=== PATIENT | female | born 2000 | race Caucasian/White ===

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

== ENCOUNTER 2019-01-01 10:02 | Inpatient (IN) | payer MEDICAID ==
[~2019-01-01] VITALS: Ht 157.5 cm; Wt 93.4 kg
[~2019-01-01 10:02] MED LIST changes: -FERROUS SULFAT325 MG PO; -IBUPROFEN800 MG PO; -TYLENOL W/CODEI1 TAB PO
[2019-01-03] MEDS ORDERED: FERROUS SULFAT325 MG PO (06:04)
[2019-01-03 07:32] LABS: HEMATOCRIT 31.3 % (36.0-48.0); MCH 29.7 pg (26.0-34.0); MCHC 31.9 g/dL (31.0-37.0); MCV 92.9 fL (80.0-100.0); MEAN PLATELET VOLUME 11.6 fL (7.4-10.4); RBC 3.37 10x6/uL (4.00-5.40); RDW 13.5 % (11.5-14.5); WBC 12.6 10x3/uL (4.8-10.8)
[2019-01-03 08:08] VITALS: BP 115/65; Ht 157.5 cm; Wt 93.4 kg
--- NOTE | 2019-01-03 20:00 | NUR ---
FUNDAL CHECK COMPLETED, FUNDUS FIRM AT U/2, MIDLINE, LOCHIA RUBRA MODERATE AMOUNT NO CLOTS OBSERVED AT THIS TIME, PERICARE PROVIDED, ICE PACK IN PLACE TO PERINEUM, IN ARMS BONDING NOTED, QUESTIONS ANSWERED REGARDING BOTTLEFEEDING , PT DENIES FURTHER QUESTIONS OR CONCERNS AT THIS TIME, CONTINUE TO MONITOR.
[2019-01-03 22:14] VITALS: BP 124/78
--- NOTE | 2019-01-03 22:14 | NUR ---
AMBULATORY TO ROOM 1257 FOR CONTINUED PP CARE. STEADY GAIT NOTED. DENIES DIZZINESS AND LIGHTHEADEDNESS. VSS. PAIN 3/10 FOLLOWING RECEIVING SCHEDULED TYLENOL AND MOTRIN. REPORTS THAT BACK IS SORE AND "MUSCLES FEEL TIGHT." STATES THAT AMBULATING AND CHANGING BEDS HAS HELPED WITH BACK DISCOMFORT. DTR'S +2. 1+ BLE EDEMA. FUNDUS REMAINS FIRM, MIDLINE AND U2 WITH SMALL AMT RUBRA LOCHIA, NO CLOTS NOTED. ICE PACK OFF PER PT REQUEST. BREATH SOUNDS CLEAR AND EQUAL BILATERALLY, RESPIRATIONS REGULAR AND UNLABORED. 2+ BILATERAL LABIAL EDEMA NOTED, SUTURES TO LABIAL LACS AND SECOND DEGREE PERINEAL LAC WELL APPROXIMATED WITH NO S/S OF INFECTION NOTED. EDUCATION PROVIDED REGARDING NIPPLE CARE WITH . INSTRUCTED TO NOTIFY RN WHEN SHE VOIDS AT LEAST THE NEXT 2 TIMES AND TO VOID AT LEAST EVERY 2 HOURS TO PREVENT BLADDER FROM OVERFILLING. EDUCATED WHAT TO EXPECT WITH LOCHIA DURING PP PERIOD, VERBALIZES UNDERSTANDING AND DENIES QUESTIONS. LINENS PROVIDED TO SPOUSE. SPOUSE PRESENT DURING EDUCATION. IN NBN. BED IN LOW POSITION WITH UPPER SIDE RAILS RAISED X2. CALL LIGHT AND PHONE WITHIN REACH. WILL CONTINUE TO MONITOR AND ASSIST PRN.
--- NOTE | 2019-01-03 23:36 | NUR ---
ROUNDS MADE. PT RESTING ON RIGHT WITH EYES CLOSED. RESPIRATIONS REGULAR AND UNLABORED, NO S/S OF DISTRESS NOTED. BED IN LOW POSITION WITH UPPER SIDE RAILS RAISED X2. INFANT REMAINS IN NBN. SIGNIFICANT OTHER RESTING ON COUCH AT BEDSIDE. WILL CONTINUE TO MONITOR AND ASSIST PRN.
--- NOTE | 2019-01-04 00:24 | NUR ---
CONTINUES TO REST ON RIGHT SIDE WITH EYES CLOSED. PT WOKE AND ASSISTED TO BATHROOM. SMALL AMT RUBRA LOCHIA NOTED ON PERIPADS, NO CLOTS. PERICARE DONE PER PT WITH PERIBOTTLE, TUX, AND DERMAPLAST. ICE PACK PROVIDE AND PLACED BY PT. BACK TO BED. INFANT REMAINS IN NBN. SPOUSE RESTING ON COUCH. BED IN LOW POSITION WITH UPPER SIDE RAILS RAISED X2. CALL LIGHT AND PHONE WITHIN REACH. WILL CONTINUE TO MONITOR AND ASSIST PRN.
--- NOTE | 2019-01-04 02:01 | NUR ---
ROUNDS MADE. PT RESTING ON RIGHT SIDE WITH EYES CLOSED WITH HOB ELEVATED 15 DEGREES. RESPIRATIONS REGULAR AND UNLABORED, NO S/S OF DISTRESS NOTED. BED IN LOW POSITION WITH UPPER SIDE RAILS RAISED X2. CALL LIGHT AND PHONE WITHIN REACH. WILL CONTINUE TO MONITOR AND ASSIST PRN.
--- NOTE | 2019-01-04 03:20 | NUR ---
PAIN 6/10, ABD CRAMPING, PERINEAL STINGING, AND BACK "TIGHTNESS AND SORE IN MY MUSCLES." SCHEDULED TYLENOL GIVEN PER ORDER. PT DENIES NEED FOR ADDITIONAL INTERVENTION. CURRENTLY BONDING WITH INFANT. STATES THAT SHE HASN'T VOIDED SINCE RN ASSISTED TO BATHROOM. EDUCATED ON IMPORTANCE OF VOIDING AT LEAST Q2H. STANDBY ASSISTANCE PROVIDED TO BATHROOM. SMALL AMT RUBRA LOCHIA NOTED ON PERIPADS. ICE PACK REMOVED BY PT, REQUESTS NO ICE PACK BE REPLACED AT THIS TIME. VOIDED 700 MLS IN HAT, C/O STINGING TO BILATERAL LABIA WITH VOIDING, STATES THAT PERIBOTTLE HELPS TO RELIEVE BURNING. PERICARE DONE PER PT USING PERIBOTTLE, TUX, AND DERMAPLAST. BACK TO BED. ICE AND ICE WATER PROVIDED. DENIES ADDITIONAL NEEDS AT THIS TIME. ASSISTED FOB ON DIAPER CHANGE AND SWADDLING PER REQUEST. BED IN LOW POSITION WITH UPPER SIDE RAILS RAISED X2. CALL LIGHT AND PHONE WITHIN REACH. WILL CONTINUE TO MONITOR AND ASSIST PRN.
--- NOTE | 2019-01-04 04:01 | NUR ---
RESTING QUIETLY WITH EYES CLOSED IN SEMIFOWLERS POSITION. RESPIATIONS REGULAR AND UNLABORED, NO S/S OF DISTRESS NOTED. RESTING IN OPEN CRIB AT BEDSIDE. BED IN LOW POSITION WITH UPPER SIDE RAILS RAISED X2. CALL LIGHT AND PHONE WITHIN REACH. WILL CONTINUE TO MONITOR AND ASSIST PRN.
--- NOTE | 2019-01-04 05:16 | NUR ---
SCHEDULE MOTRIN GIVEN PER ORDER. 03/29 CONSTANT PERINEAL BURNING/STINGING, BACK ACHE AND "MUSCLE SORENESS" AND SOME LOWER ABD CRAMPING. DENIES NEED FOR ADDITIONAL INTERVENTION. ENCOURAGED TO VOID AT THIS TIME, STATES THAT SHE HASN'T VOIDED SINCE RN PREVIOUSLY ASSISTED TO BATHROOM. REINFORCED TEACHING ON IMPORTANCE OF KEEPING BLADDER EMPTIED REGULARLY, VERBALIZES UNDERSTANDING. UP TO VOID. PERICARE DONE PER PAD. CHUX CHANGED. SCANT RUBRA LOCHIA NOTED TO PERIPAD, NO CLOTS PRESENT. PT STATES THAT SHE IS VOIDING WITHOUT DIFFICULTY, JUST EXPERIENCES BURNING WITH URINATION AT BILATERAL LABIAL LAC SITES. ICE WATER PROVIDE. IN NBN AT THIS TIME. DENIES ADDITIONAL NEEDS. BED IN LOW POSITION WITH UPPER SIDE RAILS RAISED X2. CALL LIGHT AND PHONE WITHIN REACH. WILL CONTINUE TO MONITOR AND ASSIST PRN.
--- NOTE | 2019-01-04 06:01 | NUR ---
PAIN REASSESSMENT COMPLETED. PT LAYING ON RIGHT SIDE RESTING WITH EYES CLOSED. RESPIRATIONS REGULAR AND UNLABORED. NO S/S OF DISTRESS NOTED. BED IN LOW POSITION WITH UPPER SIDE RAILS RAISED X2. CALL LIGHT AND PHONE WITHIN REACH. WILL CONTINUE TO MONITOR AND ASSIST PRN.
[2019-01-04 07:30] VITALS: BP 98/62
--- NOTE | 2019-01-04 07:30 | NUR ---
PT ASLEEP WHEN ENTERED ROOM. EASILY AWAKENED. VERBAL RESPONSES APPRO TO QUESTIONS. STATES THAT BACK HURTS SOME AND PERINEAL AREA. SMALL LOCHIA NOTED ON PAD. PT STATES THAT SHE FEELS LIKE SHE CAN VOID- UP TO BATHROOM. VOIDED- REMA CARE DONE.
[2019-01-04 07:54] LABS: BASOPHILS 0 % (0-2); EOSINOPHILS 0.1 % (0-7); HEMATOCRIT 29.6 % (36.0-48.0); HEMOGLOBIN 9.3 g/dL (12-16); IMMATURE GRANULOCYTES 0.5 % (0-5); LYMPHOCYTES 12.7 % (15-50); MCH 29.1 pg (26.0-34.0); MCHC 31.4 g/dL (31.0-37.0); MCV 92.5 fL (80.0-100.0); MEAN PLATELET VOLUME 11.5 fL (7.4-10.4); MONOCYTES 13.4 % (2-11); NEUTROPHILS 73.3 % (40-80); RDW 13.3 % (11.5-14.5)
[2019-01-04 08:03] LABS: PLATELET COUNT 163 10x3/uL (130-400)
--- NOTE | 2019-01-04 09:31 | NUR ---
UP AND ABOUT IN ROOM. STATES SHE HAS ALL SUPPLIES NEEDED FOR SHOWER.
--- NOTE | 2019-01-04 11:33 | NUR ---
SITTING UP IN BEDSIDE CHAIR HOLDING INFANT AND TALKING WITH VISITORS. DENIES NEEDS.
--- NOTE | 2019-01-04 12:25 | NUR ---
SWELLING TO PERINEAL AREA IMPROVED. ICE CAP TO PERINEUM AT THIS TIME. STATES THAT SHOWERED THIS AM.
[2019-01-04 12:40] VITALS: BP 127/85
--- NOTE | 2019-01-04 12:40 | NUR ---
DR PETERS IN ROOM TO SEE PT.
--- NOTE | 2019-01-04 13:28 | NUR ---
UP AND ABOUT IN ROOM. DENIES NEEDS.
[2019-01-04 16:36] VITALS: BP 116/53
--- NOTE | 2019-01-04 16:38 | NUR ---
co iv feeling irritated above site. noted some redness-no swelling. iv cath removed without incident- cath tip intact. pressure held and bandaide applied.
--- NOTE | 2019-01-04 19:00 | NUR ---
REPORT RECEIVED FROM GOPAL ARRIETA TO ASSUME PATIENT CARE.
[2019-01-04 19:58] VITALS: BP 131/87
--- NOTE | 2019-01-04 19:58 | NUR ---
SHIFT ASSESSMENT COMPLETED AT THIS TIME, SEE FLOWSHEET.
--- NOTE | 2019-01-04 21:27 | NUR ---
MOTRIN 800 MG PO PER MD ORDERS, SEE EMAR
--- NOTE | 2019-01-04 22:31 | NUR ---
TYLENOL WITH CODEINE ADMINISTERED AT THIS TIME PER PT REQUEST.
--- NOTE | 2019-01-05 00:18 | NUR ---
PT HOLDING INFANT, WALKIN AROUND IN THE ROOM. DENIES NEEDS AT THIS TIME. WILL CONTINUE TO MONITOR.
--- NOTE | 2019-01-05 02:30 | NUR ---
PATIENT RESTING QUIETLY WITH EYES CLOSED, RESPIRATIONS EVEN AND NON LABORED, NO DISTRESS NOTED. SIGNIFICANT OTHER REMAINS AT BEDSIDE FOR SUPPORT. BED LOCKED IN LOW POSITION, SIDE RAILS UPX2, CALL [place]VAR[place]O AND TRAY TABLE IN REACH.
--- NOTE | 2019-01-05 04:30 | NUR ---
PT RESTING QUIETLY WITH EYES CLOSED, EASILY AROUSED TO VERBAL, DECLINES TYLENOL AT THIS TIME. WILL CONTINUE TO MONITOR.
--- NOTE | 2019-01-05 05:31 | NUR ---
PT SITTING UP IN BED HOLDING . IBUPROFEN ADMINISTERED PER MD ORDERS, SEE EMAR. PT DENIES OTHER NEEDS. WILL CONTINUE TO MONITOR.
[2019-01-05 08:00] VITALS: BP 125/82
--- NOTE | 2019-01-05 08:00 | NUR ---
TO PT'S ROOM FOR AM ASSESSMENT. SEE FLOWSHEET. PT DENIES HEAVY BLEEDING OR PASSING CLOTS. PT IS CURRENTLY SITTING UP IN THE BED, WITH SIG OTHER ON SOFA HOLDING INFANT. REGULAR BREAKFAST TRAY IS ON BEDSIDE TABLE. MEDICATION ADM RECORD REVIEWED WITH PT. SEE EMAR FOR ALL MEDS ADM BY THIS RN. SR UP X2, CALL LIGHT AND PHONE WITHIN REACH.
--- NOTE | 2019-01-05 08:45 | NUR ---
DR. PETERS IN ROOM TO SPEAK WITH PT.
--- NOTE | 2019-01-05 08:53 | NUR ---
Lynne Lal [birth year] S: Patient states she has tried in the hospital but has no plans on when she returns home. A nurse did provide her with a nipple shield and told her she has flat nipples, but didn't explain how to use it. Baby acts like she doesn't like the taste of the nipple shield and won't suck. States one nurse tried helping her but that was it. For the most part baby is given formula. Patient states she is ok with formula feeding and not . Since baby recently ate she isn't hungry but verbally agrees to try latching her again for next feeding. States she just wasn't sure what she was doing with . O: Patient sitting up on side of bed. FOB holding infant on sofa in room. Congratulated on delivery and asked how can I help you with . Validated patient preferred feeding method. Asked if she is having problems with latching infant and if she would like help. Explained the reason for using a nipple shield and correctly showed patient how to apply nipple shield for feeding. Patient does have flat nipples. takes time, practice, and patience. Both mother and are learning together how to , this will take time. Educated patient on breastmilk composition, supply and demand, benefits of skin to skin, positions, how to verify is latched correctly to the breast, and infant feeding cues. It's important to practice responsive feeding to help with establishing your milk supply. It is normal for a breastfeed infant to want to nurse often. If you decide you would like some extra help with latching infant during your hospital visit, please let the nursery staff know to assist. We are happy to help you with . A: Patient has flat nipples, unsure how to correctly use nipple shield, but doesn't like the taste of the shield. Plans on formula feeding only when she arrives home. P: Continue to promote during hospital visit. Nura [place], CLC
[2019-01-05] MEDS ORDERED: IBUPROFEN800 MG PO (09:12)
[2019-01-05] MEDS ORDERED: TYLENOL W/CODEI1 TAB PO (09:13)
--- NOTE | 2019-01-05 10:45 | NUR ---
DISCHARGE INSTRUCTIONS EXPLAINED TO PT, WRITTEN COPY PROVIDED, ALONG WITH PRESCRIPTION FOR TYLENOL WITH COD, PP INSTRUCTION SHEET, HOME MED LIST, AND HEALTH SUMMARY. PT DENIES ALL QUESTIONS AT THIS TIME. PT PROVIDED WITH EXTRA PERIPANTIES/PADS, AND BETADINE FOR DISCHARGE HOME.
--- NOTE | 2019-01-05 11:15 | NUR ---
PT DISCHARDED OFF UNIT BY WHEELCHAIR IN STABLE CONDITION, WITH IN CARSEAT, WITH SIG OTHER DRIVING PRIVAGE VEHICLE.
== END 2019-01-05 11:15 | disposition home or self-care (01) | DRG 807 ==
LOC: D.LD 01-03 05:30
PROVIDERS: ADMIT Obstetrics & Gynecology; ATTEND Obstetrics & Gynecology
PROC: 10E0XZZ Delivery of Products of Conception, External Approach (ICD-10-PCS; principal; 2019-01-03)
PROC: 0KQM0ZZ Repair Perineum Muscle, Open Approach (ICD-10-PCS; 2019-01-03)
PROC: 3E033VJ Introduction of Other Hormone into Peripheral Vein, Percutaneous Approach (ICD-10-PCS; 2019-01-03)
DX: O14.94 Unspecified pre-eclampsia, complicating childbirth (principal); Z37.0 Single live birth; Z3A.37 37 weeks gestation of pregnancy; O99.02 Anemia complicating childbirth; O99.344 Other mental disorders complicating childbirth; F41.9 Anxiety disorder, unspecified; O70.1 Second degree perineal laceration during delivery

== ENCOUNTER → 2019-01-01 10:46 | Outpatient (CLI) | payer MEDICAID ==
[2018-08-16 07:56] VITALS: BMI 33.7
[~2019-01-01 10:46] MED LIST changes: +FERROUS SULFAT325 MG PO; +IBUPROFEN800 MG PO; +TYLENOL W/CODEI1 TAB PO
[2019-01-01 12:14] LABS: CREATININE - URINE 73.1 mg/dL (30-125); PRO/CRE RATIO URINE 0.3 mg/g; PROTEIN - URINE 19.5 mg/dL (0.0-11.9)
[2019-01-03 08:08] VITALS: BMI 37.7
== END | disposition home or self-care (01) ==
LOC: D.LDO 10:46
PROVIDERS: ATTEND Obstetrics & Gynecology
DX: O26.893 Other specified pregnancy related conditions, third trimester (principal); Z3A.36 36 weeks gestation of pregnancy

== ENCOUNTER → 2019-01-02 12:58 | Outpatient (CLI) | payer MEDICAID ==
[2018-08-16 07:56] VITALS: BMI 33.7
[2019-01-03 08:08] VITALS: BMI 37.7
== END | disposition home or self-care (01) ==
LOC: D.LDO 12:58
PROVIDERS: ATTEND Obstetrics & Gynecology
DX: O26.899 Other specified pregnancy related conditions, unspecified trimester (principal); Z3A.00 Weeks of gestation of pregnancy not specified